=== PATIENT | male | born 1990 | race Two or more races ===

== ENCOUNTER 2025-02-05 08:41 | Emergency (ER) | payer MEDICAID, SELFPAY ==
[2025-02-05 08:41] VITALS: BMI 20.9
[2025-02-05 08:51] VITALS: BP 117/78; PULSE 116; RESP 18; TEMP 37; O2SAT 96
--- NOTE | 2025-02-05 08:54 | XR_ITS ---
Examination: CT abdomen and pelvis without contrast. Coronal 3-D reconstructions. Sagittal 2-D reconstructions. Date and time of exam:February 05, 2025 0859 hours INDICATIONS: Generalized abdominal pain with nausea vomiting beginning 2 days ago CTDI: vol (mGy): 5.47 DLP: (mGycm): 297 Technique: Axial images of the abdomen have been obtained, 3 mm slice thickness Intravenous contrast material has not been administered. Low dose protocols were performed. One or more of the following dose reduction techniques were used; automated exposure control, adjustment of the mA and/or KV according to patient size, use of iterative reconstruction technique. Findings: Minimal opacity in the lingular segment No focal liver or splenic lesions No gallstones No pancreatic mass No renal or ureteral calculi, no hydronephrosis Aorta normal size No bowel obstruction Normal appendix No diverticulitis Minimal thickening of urinary bladder wall No prostatomegaly Intact osseous structures IMPRESSION: No renal or ureteral calculi, no hydronephrosis Normal appendix Minimal thickening of urinary bladder wall, consider cystitis
--- NOTE | 2025-02-05 08:54 | PD.EDRME ---
Rapid Medical Screening Exam RME Arrival date/time: 02/05/25 08:41 34-year-old male with diabetes presents the emergency department today complains of generalized abdominal pain nausea vomiting Chief Complaint: Abdominal Pain Vital signs: Vital Signs Temperature 98.6 F 02/05/25 08:51 Pulse Rate 116 H 02/05/25 08:51 Respiratory Rate 18 02/05/25 08:51 Blood Pressure 117/78 02/05/25 08:51 Pulse Oximetry (%) 96 02/05/25 08:51 Oxygen Delivery Method Room Air 02/05/25 08:51
[2025-02-05] MEDS: FAMOTIDINE 20 MG TABLET PO (09:03)
[2025-02-05] MEDS: LIDOCAINE VISCOUS 2% 15 ML UDC PO (09:03)
[2025-02-05] MEDS: MG HYD/AL HYD/SIME (Maalox Reg) SUSP 30 ML UDC PO (09:03)
[2025-02-05 10:14] LABS: Basophils % (Auto) 0 % (0-2.5); Eosinophils # (Auto) 0.2 Thou/mm3 (0.0-0.5); Eosinophils % (Auto) 2 % (0-10); Hematocrit 43.7 % (41.0-53.0); Hemoglobin 15.6 g/dL (13.5-16.0); Immature Granulocytes % (Auto) 1 % (0-0); Immature Granulocytes Auto 0.07 Thou/mm3 (0.00-0.00); Lymphocytes # (Auto) 0.6 Thou/mm3 (1.0-4.8); Lymphocytes % (Auto) 6 % (10-50); Mean Corpuscular HGB Conc 35.7 g/dl (31.0-37.0); Mean Corpuscular Hemoglobin 31.3 pg (25.0-35.0); Mean Corpuscular Volume 88 fL (80-100); Monocytes # (Auto) 0.7 Thou/mm3 (0.0-0.8); Monocytes % (Auto) 7 % (0-12); Neutrophils # (Auto) 8.7 Thou/mm3 (1.8-7.7); Neutrophils % (Auto) 85 % (37-80); Nucleated Red Blood Cell % 0 /100 WBC (0); Platelet Count 427 Thou/mm3 (140-440); RDW Standard Deviation 34.6 fL (35.1-43.9); Red Blood Count 4.98 Miln/mm3 (4.50-5.90); White Blood Count 10.2 Thou/mm3 (3.8-10.6)
[2025-02-05 10:19] LABS: Collection Type, Urine Clean Catch
[2025-02-05 10:31] LABS: Alanine Aminotransferase 14 U/L (10-49); Albumin, Serum 4.6 gm/dL (3.5-5.0); Albumin/Globulin Ratio 1.3 (1.2-2.2); Alkaline Phosphatase 91 U/L (46-116); Anion Gap 17 (7-16); Aspartate Amino Transferase 15 U/L (0-34); BUN/Creatinine Ratio 11 Ratio (12-20); Bilirubin,Total 1.4 mg/dL (0.3-1.2); Blood Urea Nitrogen 11 mg/dL (9-23); Carbon Dioxide 15.9 mMol/L (20.0-31.0); Chloride 102 mMol/L (98-107); Estimated Creatinine Clearance 98.3 mL/min (>60); Globulin 3.5 gm/dL (2.3-3.5); Glucose 240 mg/dL (74-106); Lipase 29 U/L (12-53); Osmolality,Calculated 277 (275-295); Potassium 4.4 mMol/L (3.4-5.1); Sodium 135 mMol/L (136-145); Total Protein 8.1 gm/dL (5.7-8.2); eGFR > 60 See Note
[2025-02-05 10:44] LABS: Bilirubin,Urine Negative (Negative); Blood,Urine Negative (Negative); Clarity,Urine Clear (Clear/Hazy); Color,Urine Yellow (Lt Yel-Yel); Culture Indicated,Urine Not Indicated; Glucose, Urine 4+ (Negative); Ketones,Urine 4+ (Negative); Leukocyte Esterase,Urine Negative (Negative); Nitrite,Urine Negative (Negative); PH,Urine 5.5 (5.0-7.0); Protein,Urine 1+ (Neg - Trace); RBC,Urine 1 /hpf (0-3); Specific Gravity,Urine 1.031 (1.001-1.035); Squamous Epithelial Cell,Urine < 1 /hpf (0-5); Urobilinogen,Urine Negative mg/dL (0.0-1.0); WBC,Urine < 1 /hpf (0-5)
[2025-02-05 11:09] VITALS: BP 128/66; PULSE 99; RESP 13; TEMP 37.1; O2SAT 99
[2025-02-05 11:11] LABS: Amphetamine/Methamp Scrn,U Negative (Negative); Barbiturate Screen,Urine Negative (Negative); Benzodiazepines Screen,Urine Negative (Negative); Benzoylecgonine Screen, Ur Negative (Negative); Fentanyl Screen,Urine Negative (Negative); Opiate Screen,Urine Negative (Negative); THC Screen,Urine Positive (Negative)
--- NOTE | 2025-02-05 12:11 | PD.EDABDPN ---
ED Abdominal Pain RME/HPI General Chief Complaint: Abdominal Pain Stated complaint: ABD PAIN X3DAYS, HX DM Arrival date/time: 02/05/25 08:41 RME / HPI RME / HPI narrative: 02/05/25 08:41 34-year-old male with diabetes presents the emergency department today complains of generalized abdominal pain nausea vomiting. DR. YANES MAIN ED EVALUATION: 34 y/o male with H/o Type I DM presents to ED c/o epigastric abdominal pain, nausea, vomiting and constipation x 2 days. Patient states last BM was 2 days ago. Patient also reports vomiting 2 days ago with no reoccurrence. Denies any dysuria or any other UA symptoms. No other concerns or complaints expressed at this time. Related Data Home Medications ?Medication ?Instructions ?Recorded ?Confirmed albuterol sulfate 90 mcg/actuation 2 puff inhalation Q4HR PRN DYSPNEA 12/27/17 12/27/17 aerosol inhaler insulin glargine 100 unit/mL (3 See Rx Instructions .Route .COMPLEX 01/16/23 01/16/23 mL) subcutaneous pen (Basaglar KwikPen U-100 Insulin) insulin lispro 100 unit/mL See Rx Instructions .Route .COMPLEX 01/16/23 01/16/23 subcutaneous pen (Admelog SoloStar U-100 Insulin lispro) Previous Rx's ?Medication ?Instructions ?Recorded BD Ultra-Fine Mini Pen Needle 31 #100 ea 09/25/21 gauge x 3/16 (pen needle, diabetic) Blood Glucose Test (blood sugar #100 ea 09/25/21 diagnostic) blood-glucose meter #1 ea 09/25/21 lancets #100 ea 09/25/21 blood-glucose sensor (FreeStyle #1 ea 08/28/23 Carrillo 3 Sensor device) Allergies Allergy/AdvReac Type Severity Reaction Status Date / Time No Known Allergies Allergy Verified 02/05/25 08:43 Review of Systems Review of Systems Systems Reviewed: All systems reviewed, normal except as documented Narrative Review of Systems: Gen: No fever, no chills, no weight loss EYES: No discharge, no visual changes, no pain HEENT: No ear pain, no congestion, no sore throat PULM: No shortness of breath, no cough, no congestion CV: No chest pain, no dyspnea on exertion, no palpitations GI: +Nausea, no vomiting (vomited 2 days ago, but not since; see HPI), +constipation, no diarrhea : No frequency, no urgency,? no dysuria Musc/skel: No joint pain, no back pain Skin: No rash? Psyc: No hallucinations, no depression Heme/Lymph: No easy bleeding or bruising tendencies Neuro: No weakness, no headache Past Medical History Past Medical History RESPIRATORY: Positive Asthma ENDOCRINE: Positive Endocrine Disorders and Diabetes Mellitus Type 1 OTHER HISTORY: Positive Chicken Pox Family History FAMILY HISTORY: Positive Family Cancer Social History SMOKING STATUS: Never smoker ED Exam Narrative Physical exam: GENERAL APPEARANCE:? alert and oriented x 4, well-developed, well-nourished, no acute distress HEENT: Normocephalic, atraumatic; pupils equal, round, reactive to light; EOMI; mucous membranes pink, dry; oropharynx clear NECK: Supple LUNGS: CTABL; no wheezes, no rales, no rhonchi HEART: Regular rate, regular rhythm; normal S1, S2; no murmurs ABDOMEN: non distended; normal BS; mild epigastric tenderness, no guarding, no rebound; no masses, no organomegaly, no hernia?? BACK:? no CVA tenderness EXTREMITIES:? atraumatic; no edema NEUROLOGIC: awake; alert and oriented x4; cranial nerves II-XII grossly intact; no focal sensory or motor deficits PSYCHIATRIC:? appropriate mood and affect SKIN: warm, dry, normal color; no rashes Course Quality Measures none Orders Category Date Time Status Bedside Blood Glucose NOW Care 02/05/25 08:[address] abdomen pelvis wo con Stat Exams 02/05/25 08:54 Completed CBC Stat Lab 02/05/25 09:54 Completed Comprehensive Metabolic Panel Stat Lab 02/05/25 09:54 Completed Drug Screen,Urine Stat Lab 02/05/25 10:10 Completed Lipase Stat Lab 02/05/25 09:54 Completed UA, C/S IF [Urinalysis, C/S if Indicated] Stat Lab 02/05/25 10:10 Completed Famotidine [Pepcid] Med 02/05/25 08:54 Discontinued 20 mg PO X1 ONE Lidocaine 2% Viscous [Xylocaine 2% Viscous] Med 02/05/25 08:54 Discontinued 15 ml PO X1 ONE Ondansetron Inj [Zofran Inj] Med 02/05/25 12:11 Discontinued 4 mg IV X1 ONE Sodium Chloride 0.9% 1000 ml [Ns] 1,000 ml Med 02/05/25 12:11 Discontinued IV 999 mls/hr Sodium Chloride 0.9% 1000 ml [Ns] 1,000 ml Med 02/05/25 12:11 Discontinued IV 999 mls/hr mg Hyd/Al Hyd/Doron Susp [Maalox Susp] Med 02/05/25 08:54 Discontinued 30 ml PO X1 ONE Vital Signs Vital signs: Vital Signs Temperature 98.6 F 02/05/25 08:51 Pulse Rate 116 H 02/05/25 08:51 Respiratory Rate 18 02/05/25 08:51 Blood Pressure 117/78 02/05/25 08:51 Pulse Oximetry (%) 96 02/05/25 08:51 Oxygen Delivery Method Room Air 02/05/25 08:51 Abdominal Pain MDM MDM Narrative MDM Narrative:: INicki, am scribing for and in the presence of Dr. Yanes. Patient data External records reviewed:: [facility] previous records (Reviewed last admission discharge dated 08/28/23. Patient admitted for the following: DKA.) Clinical information provided by:: patient Social determinants that could affect healthcare access:: none Patient has the following chronic illnesses:: DM Type I How is presenting disease/condition affected by chronic disease/condition?: exacerbated by Evaluation data The following diagnostics were reviewed and interpreted by me:: lab results and radiology exam(s) Lab and/or radiology exams considered but not ordered:: None Interpretation Summary: Patient tested positive for marijuana. RADIOLOGY: Procedure(s): CT abdomen pelvis wo [facility] Accession Number(s): [id number] cc: Hetal (ALYX),Carlos A WISDOM; Federico Landa MD; Lakhwinder Stevens MD~ Examination: CT abdomen and pelvis without contrast. Coronal 3-D reconstructions. Sagittal 2-D reconstructions. Date and time of exam:February 05, 2025 0859 hours INDICATIONS: Generalized abdominal pain with nausea vomiting beginning 2 days ago CTDI: vol (mGy): 5.47 DLP: (mGycm): 297 Technique: Axial images of the abdomen have been obtained, 3 mm slice thickness Intravenous contrast material has not been administered. Low dose protocols were performed. One or more of the following dose reduction techniques were used; automated exposure control, adjustment of the mA and/or KV according to patient size, use of iterative reconstruction technique. Findings: Minimal opacity in the lingular segment No focal liver or splenic lesions No gallstones No pancreatic mass No renal or ureteral calculi, no hydronephrosis Aorta normal size No bowel obstruction Normal appendix No diverticulitis Minimal thickening of urinary bladder wall No prostatomegaly Intact osseous structures IMPRESSION: No renal or ureteral calculi, no hydronephrosis Normal appendix Minimal thickening of urinary bladder wall, consider cystitis Dictated By: Lakhwinder Stevens MD Medications / Prescriptions Medications or Prescriptions considered but not ordered:: None Medication administrations:: Medication Administration History Discontinued Medications Al Hydrox/Mg Hydrox/Simethicone (Mg Hyd/Al Hyd/Doron (Maalox Reg) Susp 30 Ml Udc) 30 ml PO X1 ONE Stop: 02/05/25 08:55 Last Admin: 02/05/25 09:03 Dose: 30 ml Documented By: MONICA Famotidine (Famotidine 20 Mg Tablet) 20 mg PO X1 ONE Stop: 02/05/25 08:55 Last Admin: 02/05/25 09:03 Dose: 20 mg Documented By: MONICA Sodium Chloride (Ns) 1,000 mls @ 999 mls/hr IV .Q1H1M ONE Stop: 02/05/25 13:11 Last Admin: 02/05/25 12:36 Dose: 999 mls/hr Documented By: VANESSA Sodium Chloride (Ns) 1,000 mls @ 999 mls/hr IV .Q1H1M ONE Stop: 02/05/25 13:11 Last Admin: 02/05/25 12:37 Dose: 999 mls/hr Documented By: VANESSA Lidocaine HCl (Lidocaine Viscous 2% 15 Ml Udc) 15 ml PO X1 ONE Stop: 02/05/25 08:55 Last Admin: 02/05/25 09:03 Dose: 15 ml Documented By: MONICA Ondansetron HCl (Ondansetron Inj 2 Mg/Ml Inj 2 Ml) 4 mg IV X1 ONE Stop: 02/05/25 12:12 Last Admin: 02/05/25 12:35 Dose: 4 mg Documented By: VANESSA See above. Consultations Consultation(s) initiated? (list below): No Diagnosis Differential diagnosis abdominal pain: abdominal pain, constipation, gastroenteritis, small bowel obstruction and other (Hyperglycemia) Most likely diagnosis given after review of the tests above:: Diabetes, abdominal pain, hyperglycemia, nausea. Admission Indicated Admission indicated?: not indicated Admission Request Was there a request for admission?: No Disposition Plan Disposition Plan: Discharge Discharge Attestation Discharge Attestation: The patient and all family members were given an opportunity to ask questions and understood the discharge instructions. Discharge instructions specifically effects, indications for sooner follow up or return to the emergency department, and the expected course of current diagnosis. Patient condition: Stable Discharge Plan Plan Patient Disposition: HOME (Self Care) Prescriptions/Referrals Prescriptions/Med Rec: No Action albuterol sulfate 90 mcg/actuation Hfa Aerosol Inhaler 2 puff Inhalation Q4HR PRN (Reason: DYSPNEA) (DME) pen needle, diabetic [BD Ultra-Fine Mini Pen Needle] 31 gauge x 3/16 needle See Rx Instructions .Route Qty: 100 0RF Rx Instructions: As directed (DME) blood-glucose meter Misc See Rx Instructions .Route Qty: 1 0RF Rx Instructions: As directed (DME) lancets Misc See Rx Instructions .Route Qty: 100 0RF Rx Instructions: As directed (DME) Blood Glucose Test Strip See Rx Instructions .Route Qty: 100 0RF Rx Instructions: As directed (DME) FreeStyle Carrillo 3 Sensor Device See Rx Instructions .Route Qty: 1 0RF Rx Instructions: As directed insulin lispro [Admelog SoloStar U-100 Insulin] 100 unit/mL insulin pen See Rx Instructions .ROUTE .COMPLEX Patient Comments: INJECT 6-10 UNITS UNDER THE SKIN THREE TIMES A DAY Rx Instructions: inject 6-10 units under skin three times a day insulin glargine [Basaglar KwikPen U-100 Insulin] 100 unit/mL (3 mL) insulin pen See Rx Instructions .ROUTE .COMPLEX Patient Comments: INJECT 10 UNITS SUBCUTANEOUS AT BEDTIME FOR 30 DAYS BOX WILL LAST FOR 150 DAYS Rx Instructions: Inject 10 units subcutaneous at bedtime for 30 days. Box will last for 150 days Referrals: Federico Landa MD [Primary Care Provider] - In 1 week Problem List Clinical Impression: Diabetes, Abdominal pain, Hyperglycemia, Nausea Patient/Caregiver Discharge Instructions Education Materials: ED Diabetes with High Blood Sugar Print Language: Uzbek Stand Alone Forms: Genevieve Award Info., Patient Portal Info Letter
[2025-02-05] MEDS: ONDANSETRON INJ 2 MG/ML INJ 2 ML 4 MG IV (12:35)
[2025-02-05] MEDS: SODIUM CHLORIDE 0.9% 1000 ML 1,000 ML 999 ML IV ×2 (12:36→12:37)
[2025-02-05 14:11] VITALS: BP 123/69; PULSE 105; RESP 17; TEMP 37.4; O2SAT 99
== END 2025-02-05 14:50 | disposition home or self-care (01) ==
PROVIDERS: Nurse Practitioner Primary Care; Emergency Provider Emergency Medicine; PCP Family Medicine
DX: E10.65 Type 1 diabetes mellitus with hyperglycemia (principal); R10.84 Generalized abdominal pain; N32.89 Other specified disorders of bladder; Z79.4 Long term (current) use of insulin
CPT/HCPCS: 36415; 74176; 80053; 80307; 81001; 83690; 85025; 96361; 96374; 99284; J2405; J3490; J7030; A9270

== ENCOUNTER 2025-02-06 11:32 | Emergency (ER) | payer MEDICAID, SELFPAY ==
[2025-02-06 11:34] VITALS: BP 137/77; PULSE 125; RESP 18; TEMP 36.8; O2SAT 96
--- NOTE | 2025-02-06 11:39 | EKG_ITS ---
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: : 1990 Requested By: Bob Powers Order Number: [id number] Reading MD: Bob Powers Measurements Intervals [place] Rate: 109 P: 89 NM: 118 QRS: 46 QRSD: 82 T: 55 QT: 309 QTc: 417 Interpretive Statements SINUS TACHYCARDIA WITH SHORT NM INTERVAL MINIMAL VOLTAGE CRITERIA FOR LVH, CONSIDER NORMAL VARIANT [MEETS CRITERIA IN ONE OF: R(aVL), S(V1), R(V5), R(V5/V6)+S(V1)] ABNORMAL RHYTHM ECG Compared to ECG 07/22/2022 18:29:27 Short NM interval now present Sinus rhythm no longer present Early repolarization no longer present ST (T wave) deviation no longer present /store/S0/[id number]/ecg/[id number].pdf
--- NOTE | 2025-02-06 11:48 | PD.EDRME ---
Rapid Medical Screening Exam RME Arrival date/time: 02/06/25 11:32 34-year-old male with a history of type 1 diabetes presents to the emergency room with a chief complaint of vomiting, and increased heart rate, body aches x 1 day I have greeted and performed a focused initial assessment of this patient. A comprehensive ED assessment and evaluation of the patient, analysis of all test results, and completion of the medical decision making process will be conducted by additional ED providers. Chief Complaint: Nausea/Vomiting/Diarrhea Vital signs: Vital Signs Temperature 98.3 F 02/06/25 11:34 Pulse Rate 125 H 02/06/25 11:34 Respiratory Rate 18 02/06/25 11:34 Blood Pressure 137/77 H 02/06/25 11:34 Pulse Oximetry (%) 96 02/06/25 11:34 Oxygen Delivery Method Room Air 02/06/25 11:34 Vital signs reviewed by provider: Yes
[2025-02-06 11:57] VITALS: BMI 19.9
[2025-02-06 12:14] LABS: Basophils # (Auto) 0.1 Thou/mm3 (0.0-0.2); Basophils % (Auto) 1 % (0-2.5); Eosinophils # (Auto) 0.2 Thou/mm3 (0.0-0.5); Eosinophils % (Auto) 3 % (0-10); Hematocrit 38.8 % (41.0-53.0); Hemoglobin 14.4 g/dL (13.5-16.0); Immature Granulocytes % (Auto) 1 % (0-0); Immature Granulocytes Auto 0.07 Thou/mm3 (0.00-0.00); Lymphocytes # (Auto) 0.5 Thou/mm3 (1.0-4.8); Lymphocytes % (Auto) 7 % (10-50); Mean Corpuscular HGB Conc 37.1 g/dl (31.0-37.0); Mean Corpuscular Hemoglobin 32.5 pg (25.0-35.0); Mean Corpuscular Volume 88 fL (80-100); Monocytes # (Auto) 0.8 Thou/mm3 (0.0-0.8); Monocytes % (Auto) 10 % (0-12); Neutrophils # (Auto) 5.8 Thou/mm3 (1.8-7.7); Neutrophils % (Auto) 78 % (37-80); Nucleated Red Blood Cell % 0 /100 WBC (0); Platelet Count 492 Thou/mm3 (140-440); RDW Standard Deviation 34.5 fL (35.1-43.9); Red Blood Count 4.43 Miln/mm3 (4.50-5.90); White Blood Count 7.4 Thou/mm3 (3.8-10.6)
[2025-02-06 12:17] LABS: Beta Hydroxybutyrate 5.4 mmol/L (<0.6)
--- NOTE | 2025-02-06 12:17 | XR_ITS ---
Examination: PA lateral chest 2 views TECHNIQUE: Upright PA lateral chest 2 views Exam date and time: February 06, 2025 1215 hours INDICATIONS: Coughing fever beginning 2 days ago. FINDINGS: Mild hyperexpansion Normal heart size. No lobar pneumonia Intact osseous structures IMPRESSION: Mild hyperexpansion
[2025-02-06 12:49] LABS: Alanine Aminotransferase 10 U/L (10-49); Albumin, Serum 4.2 gm/dL (3.5-5.0); Albumin/Globulin Ratio 1.3 (1.2-2.2); Alkaline Phosphatase 88 U/L (46-116); Anion Gap 16 (7-16); Aspartate Amino Transferase 12 U/L (0-34); BUN/Creatinine Ratio 8 Ratio (12-20); Bilirubin,Total 1.7 mg/dL (0.3-1.2); Blood Urea Nitrogen 8 mg/dL (9-23); Calcium 8.9 mg/dL (8.3-10.6); Calcium (Corrected) 8.9 mg/dL (8.5-10.1); Carbon Dioxide 15.9 mMol/L (20.0-31.0); Chloride 104 mMol/L (98-107); Estimated Creatinine Clearance 91.1 mL/min (>60); Globulin 3.2 gm/dL (2.3-3.5); Glucose 226 mg/dL (74-106); Lipase 35 U/L (12-53); Osmolality,Calculated 277 (275-295); Potassium 3.7 mMol/L (3.4-5.1); Sodium 136 mMol/L (136-145); Total Protein 7.4 gm/dL (5.7-8.2); eGFR > 60 See Note
[2025-02-06 13:04] LABS: Collection Type, Urine Clean Catch; Squamous Epithelial Cell,Urine 0 /hpf (0-5)
--- NOTE | 2025-02-06 13:05 | EDNOTE_ITS ---
ED General RME/HPI General Chief complaint: Nausea/Vomiting/Diarrhea Stated complaint: NAUSEA, INCREASED HR, H/O DKA Time Seen by Provider: 02/06/25 12:58 Arrival date/time: 02/06/25 11:32 CC: Coughing up phlegm, palpitations, spiking blood sugar HPI ongoing for the past 4 to 5 days. Patient denies fever but states also he thinks his urine is smelling funny . Patient states in spite of his insulin his sugars have been high. Patient denies shortness of breath or difficulty breathing. Patient is somewhat anxious but not in any acute distress. RME / HPI RME / HPI narrative: 02/06/25 11:32 34-year-old male with a history of type 1 diabetes presents to the emergency room with a chief complaint of vomiting, and increased heart rate, body aches x 1 day I have greeted and performed a focused initial assessment of this patient. A comprehensive ED assessment and evaluation of the patient, analysis of all test results, and completion of the medical decision making process will be conducted by additional ED providers. Related Data Home Medications ?Medication ?Instructions ?Recorded ?Confirmed albuterol sulfate 90 mcg/actuation 2 puff inhalation Q 4HR PRN DYSPNEA 12/27/17 12/27/17 aerosol inhaler insulin glargine 100 unit/mL (3 See Rx Instructions .R oute .COMPLEX 01/16/23 01/16/23 mL) subcutaneous pen (Basaglar KwikPen U-100 Insulin) insulin lispro 100 unit/mL See Rx Instructions .Route .COMPLEX 01/16/23 01/16/23 subcutaneous pen (Admelog SoloStar U-100 Insulin lispro) Previous Rx's ?Medication ?Instructions ?Recorded BD Ultra-Fine Mini Pen Needle 31 #100 ea 09/25/21 gauge x 3/16 (pen needle, diabetic) Blood Glucose Test (blood sugar #100 ea 09/25/21 diagnostic) blood-glucose meter #1 ea 09/25/21 lancets #100 ea 09/25/21 blood-glucose sensor (FreeStyle #1 ea 08/28/23 Carrillo 3 Sensor device) ondansetron 4 mg disintegrating 4 mg PO Q8H #10 tabs 0 02/06/25 tablet Allergies Allergy/AdvReac Type Severity Reaction Status Date / Time No Known Allergies Allergy Verified 02/05/25 08:43 Review of Systems Review of Systems Narrative Review of Systems: GEN: No fever, no chills, no weight loss EYES: No discharge, no visual changes, no pain HEENT: No ear pain, no congestion, no sore throat PULM: No shortness of breath, no cough, no congestion CV: No chest pain, no dyspnea on exertion, no palpitations GI: No nausea, no vomiting, no diarrhea, no pain, no constipation : No frequency, no urgency, no dysuria MUSC/SKEL: No joint pain, no back pain SKIN: No rash PSYCH: No hallucinations, no depression HEME/LYMPH: No easy bleeding or bruising tendencies NEURO: No weakness, no headache Past Medical History Past Medical History CARDIAC: Negative Cardiac Disorders or Congestive Heart Failure RESPIRATORY: Positive Asthma; Negative Chronic Obstructive Pulmonary Disease (COPD) GASTROINTESTINAL: Negative Gastrointestinal Disorders GENITOURINARY: Negative Renal Disease ENDOCRINE: Positive Endocrine Disorders and Diabetes Mellitus Type 1; Negative Diabetes Mellitus Type 2 HEMATOLOGIC: Negative Sickle Cell Disease OTHER HISTORY: Positive Chicken Pox; Negative Autoimmune Disease, Autism, MRSA or Cancer Family History FAMILY HISTORY: Positive Family Cancer Surgical History SURGICAL: Negative Cardiac Surgery, Endocrine Surgery, Ear Surgery, Abdominal Surgery, Nephrectomy, Joint Replacement or Neurologic Surgery Social History SMOKING STATUS: Former smoker ED Exam Narrative Physical exam: [General: Not in any acute distress Head normocephalic HEENT: Within acceptable limits Neck is supple nontender Chest equal chest rise nontender to palpation Respiratory: Clear to auscultation no wheezes crackles or rubs CV: Rate rhythm is regular tachycardic, no murmurs rubs or clicks Abdomen is soft nontender no masses positive bowel sounds all 4 quadrants Back: No CVA tenderness no spinous process tenderness from cervical spine thoracic and lumbar spine Skin: Intact no petechiae rash induration ulceration or crepitus Extremities: Moving all extremity against resistance cap refill less than 2 seconds neurosensory intact Neuro: Awake alert oriented x3 Glascow coma 15 no focal deficits] Course Quality Measures none Orders Category Date Time Status Bedside COVID-19 Antigen Test NOW Care 02/06/25 11:48 Active Bedside Influenza A&B Antigen Test NOW Care 02/06/25 11:48 Completed EKG (ED ONLY) *Do not use* NOW Care 02/06/25 11:39 Completed Saline [Insert IV] NOW Care 02/06/25 13:04 Active EKG (ED Only) Stat Exams 02/06/25 11:39 Draft XR chest 2V Stat Exams 02/06/25 12:17 Completed Beta Hydroxybutyrate Stat Lab 02/06/25 12:05 Completed CBC Stat Lab 02/06/25 12:05 Completed CMP [Comprehensive Metabolic Panel] Stat Lab 02/06/25 12:05 Completed Lipase Stat Lab 02/06/25 12:05 Completed UA [Urinalysis] Stat Lab 02/06/25 12:30 Completed Urine Culture Stat Lab 02/06/25 12:30 Received Ondansetron Inj [Zofran Inj] Med 02/06/25 14:17 Discontinued 4 mg IV X1 ONE Sodium Chloride 0.9% 1000 ml [Ns] 1,000 ml Med 02/06/25 13:04 Discontinued IV 999 mls/hr Vital Signs Vital signs: Vital Signs Temperature 98.3 F 02/06/25 11:34 Pulse Rate 125 H 02/06/25 11:34 Respiratory Rate 18 02/06/25 11:34 Blood Pressure 137/77 H 02/06/25 11:34 Pulse Oximetry (%) 96 02/06/25 11:34 Oxygen Delivery Method Room Air 02/06/25 11:[address] [facility] Patient data External records reviewed:: [facility] previous records Clinical information provided by:: patient Social determinants that could affect healthcare access:: none Patient has the following chronic illnesses:: Type 1 diabetes How is presenting disease/condition affected by chronic disease/condition?: u neffected by Evaluation data The following diagnostics were reviewed and interpreted by me:: lab results, radiology exam(s) and EKG tracing(s) Lab and/or radiology exams considered but not ordered:: EKG performed at 12 noon shows ventricular rate of 109. Of the 118 QRS of 82 QTc of 373 this is sinus tachycardia with short [place] interval. This is an abnormal EKG Chest x-ray as interpreted by me read by radiology as negative for any acute finding. CBC shows no acute leukocytosis hematocrit is 38.3 no other abnormalities in the CBC. CMP shows no significant electrolyte imbalances carbon dioxide of 15.9 BUN of 8 glucose of 226. T. bili of 1.7 no transaminitis. Lipase is normal Beta hydroxy is 5.4 Urine shows 4+ glucose but no acute finding is suggestive of a UTI. Interpretation Summary: T. bili is unchanged from previous visits. Reexamined of this patient at 0 850, the patient is awake alert oriented heart rate is decreased to 107. Patient has no other symptoms no complaints. Chest x-ray is negative for pneumonia. Patient is resting comfortably reassessment of 1500, this time patient was discharged home with cough. Medications Medications considered but not ordered:: None Medication administrations:: Medication Administration History Discontinued Medications Sodium Chloride (Ns) 1,000 mls @ 999 mls/hr IV .Q1H1M ONE Stop: 02/06/25 14:04 Last Admin: 02/06/25 13:47 Dose: 999 mls/hr Documented By: DREW Ondansetron HCl (Ondansetron Inj 2 Mg/Ml Inj 2 Ml) 4 mg IV X1 ONE; Protocol Stop: 02/06/25 14:18 Last Admin: 02/06/25 14:21 Dose: 4 mg Documented By: DREW None Consultations Consultation(s) initiated? (list below): No Diagnosis Differential Diagnosis ED Complaint MDM: DKA cough pneumonia Most likely diagnosis given after review of the tests above:: Cough, nausea Admission Indicated Admission indicated?: not indicated Explain why admission is indicated or not indicated:: Stable to discharge Admission Request Was there a request for admission?: No Disposition Plan Disposition Plan: Discharge Discharge Attestation Discharge Attestation: The patient and all family members were given an opportunity to ask questions and understood the discharge instructions. Discharge instructions specifically effects, indications for sooner follow up or return to the emergency department, and the expected course of current diagnosis. Patient condition: Stable Medical Decision Making Differential Diagnosis Differential Diagnosis: DKA cough pneumonia Lab Data 02/06/25 12:05 02/06/25 12:05 Labs: Lab Results 02/06/25 02/06/25 Range/Units 12:05 12:30 WBC 7.4 (3.8-10.6) Thou/mm3 RBC 4.43 L (4.50-5.90) Miln/mm3 Hgb 14.4 (13.5-16.0) g/dL Hct 38.8 L (41.0-53.0) % MCV 88 (80-100) fL MCH 32.5 (25.0-35.0) pg MCHC 37.1 H (31.0-37.0) g/dl RDW Std Deviation 34.5 L (35.1-43.9) fL Plt Count 492 H D (140-440) Thou/mm3 Neut % (Auto) 78 (37-80) % Lymph % (Auto) 7 L (10-50) % [place] % (Auto) 10 (0-12) % Eos % (Auto) 3 (0-10) % Baso % (Auto) 1 (0-2.5) % Neut # (Auto) 5.8 (1.8-7.7) Thou/mm3 Lymph # (Auto) 0.5 L (1.0-4.8) Thou/mm3 [place] # (Auto) 0.8 (0.0-0.8) Thou/mm3 Eos # (Auto) 0.2 (0.0-0.5) Thou/mm3 Baso # (Auto) 0.1 (0.0-0.2) Thou/mm3 Immature Gran # (Auto) 0.07 H (0.00-0.00) Thou/mm3 Absolute Nucleated RBC 0.00 (0.00-0.00) Thou/mm3 Immature Gran % 1 H (0-0) % Nucleated RBC % 0 (0) /100 WBC Sodium 136 (136-145) mMol/L Potassium 3.7 D (3.4-5.1) mMol/L Chloride 104 (98-107) mMol/L Carbon Dioxide 15.9 L (20.0-31.0) mMol/L Anion Gap 16 (7-16) BUN 8 L (9-23) mg/dL Creatinine 1.0 (0.6-1.3) mg/dL Estim Creat Clear Calc 91.1 (>60) mL/min eGFR > 60 (60 - ) See Note BUN/Creatinine Ratio 8 L (12-20) Ratio Glucose 226 H (74-106) mg/dL Calculated Osmolality 277 (275-295) Calcium 8.9 (8.3-10.6) mg/dL Corrected Calcium 8.9 (8.5-10.1) mg/dL Total Bilirubin 1.7 H (0.3-1.2) mg/dL AST 12 (0-34) U/L ALT 10 (10-49) U/L Alkaline Phosphatase 88 (46-116) U/L Total Protein 7.4 (5.7-8.2) gm/dL Albumin 4.2 (3.5-5.0) gm/dL Globulin 3.2 (2.3-3.5) gm/dL Albumin/Globulin Ratio 1.3 (1.2-2.2) Lipase 35 D (12-53) U/L Beta-Hydroxybutyrate/Acetoacetate 5.4 H (<0.6) mmol/L Ur Collection Type Clean Catch Urine Color Lt-Yellow (Lt Yel-Yel) Urine Clarity Clear (Clear/Hazy) Urine pH 6.0 (5.0-7.0) Ur Specific [place] 1.031 (1.001-1.035) Urine Protein 1+ A (Neg - Trace) Urine Glucose (UA) 4+ A (Negative) Urine Ketones 4+ A (Negative) Urine Blood Negative (Negative) Urine Nitrite Negative (Negative) Urine Bilirubin Negative (Negative) Urine Urobilinogen (Auto) Negative (0.0-1.0) mg/dL Ur Leukocyte Esterase Negative (Negative) Urine RBC 1 (0-3) /hpf Urine WBC 1 (0-5) /hpf Ur Squamous Epith Cells 0 (0-5) /hpf Urine Bacteria Rare (None) Discharge Plan Plan Patient Disposition: HOME (Self Care) Patient condition on transfer: Stable Prescriptions/Referrals Prescriptions/Med Rec: New ondansetron 4 mg tablet,disintegrating 4 mg PO Q8H Qty: 10 0RF No Action albuterol sulfate 90 mcg/actuation Hfa Aerosol Inhaler 2 puff Inhalation Q4HR PRN (Reason: DYSPNEA) (DME) pen needle, diabetic [BD Ultra-Fine Mini Pen Needle] 31 gauge x 3/16 needle See Rx Instructions .Route Qty: 100 0RF Rx Instructions: As directed (DME) blood-glucose meter Misc See Rx Instructions .Route Qty: 1 0RF Rx Instructions: As directed (DME) lancets Misc See Rx Instructions .Route Qty: 100 0RF Rx Instructions: As directed (DME) Blood Glucose Test Strip See Rx Instructions .Route Qty: 100 0RF Rx Instructions: As directed (DME) FreeStyle Carrillo 3 Sensor Device See Rx Instructions .Route Qty: 1 0RF Rx Instructions: As directed insulin lispro [Admelog SoloStar U-100 Insulin] 100 unit/mL insulin pen See Rx Instructions .ROUTE .COMPLEX Patient Comments: INJECT 6-10 UNITS UNDER THE SKIN THREE TIMES A DAY Rx Instructions: inject 6-10 units under skin three times a day insulin glargine [Basaglar KwikPen U-100 Insulin] 100 unit/mL (3 mL) insulin pen See Rx Instructions .ROUTE .COMPLEX Patient Comments: INJECT 10 UNITS SUBCUTANEOUS AT BEDTIME FOR 30 DAYS BOX WILL LAST FOR 150 DAYS Rx Instructions: Inject 10 units subcutaneous at bedtime for 30 days. Box will last for 150 days Referrals: Federico Landa MD [Physician] - In 1 week No Primary/Family,Physician [Primary Care Provider] - In 1 week Problem List Clinical Impression: Cough, Nausea, Hyperglycemia due to diabetes mellitus Patient/Caregiver Discharge Instructions Other Activity Instructions:: Rest drink plenty of fluids and control your blood sugars, take the medication as needed for nausea if there is worsening of symptoms return to emergency room immediately for further evaluation. Education Materials: ED Diabetes with High Blood Sugar Print Language: Samoan Stand Alone Forms: Genevieve Award Info., Patient Portal Info Letter, Work/School Release PA/ADMINISTRATIVE PROGRAM SPECIALIST Supervising Physician LILIANA/ALANANH Supervising Physician: Shailesh Kaur ENP
[2025-02-06 13:22] LABS: Bacteria,Urine Rare; Bilirubin,Urine Negative (Negative); Blood,Urine Negative (Negative); Clarity,Urine Clear (Clear/Hazy); Color,Urine Lt-Yellow (Lt Yel-Yel); Glucose, Urine 4+ (Negative); Ketones,Urine 4+ (Negative); Leukocyte Esterase,Urine Negative (Negative); Nitrite,Urine Negative (Negative); Protein,Urine 1+ (Neg - Trace); RBC,Urine 1 /hpf (0-3); Specific Gravity,Urine 1.031 (1.001-1.035); Urobilinogen,Urine Negative mg/dL (0.0-1.0); WBC,Urine 1 /hpf (0-5)
[2025-02-06] MEDS: SODIUM CHLORIDE 0.9% 1000 ML 1,000 ML 999 ML IV (13:47)
[2025-02-06] MEDS: ONDANSETRON INJ 2 MG/ML INJ 2 ML 4 MG IV (14:21)
[2025-02-06 14:25] VITALS: BP 129/85; PULSE 110; RESP 16; TEMP 37; O2SAT 99
== END 2025-02-06 15:30 | disposition home or self-care (01) ==
PROVIDERS: Nurse Practitioner Family; Emergency Provider Emergency Medicine
DX: R05.9 Cough, unspecified (principal); R11.2 Nausea with vomiting, unspecified; E10.65 Type 1 diabetes mellitus with hyperglycemia
CPT/HCPCS: 36415; 71046; 80053; 81001; 82010; 83690; 85025; 87086; 87400; 87811; 93005; 96361; 96374; 99284; J2405; J7030